=== PATIENT | female | born 1950 | race African-American/Black ===

== ENCOUNTER 2023-08-22 15:32 | Emergency (ER) | payer MEDICARE, MEDICAID ==
[~2023-08-22] VITALS: Ht 162.6 cm; Wt 74.8 kg
[~2023-08-22 15:32] MED LIST: AMLO5TAB88 PO; APIX5TAB PO; ATOR40TA70 MT; DILT120C46 PO; DILT120C88 MT; FAMO20TA8 PO; GABA-529 PO; POTA-204 MT; TOPUD PO; [UNRECOGNIZED DRUG - OTHER]
[2023-08-22 15:43] VITALS: BP 168/84; RESP 16; TEMP 98.6; O2SAT 98
[2023-08-22 15:46] VITALS: PULSE 76
[2023-08-22] MEDS: BACITRACIN ZINC OINT UDPKT TOP ONE (16:45)
[2023-08-22] MEDS: LIDOCAINE/PRILOCAINE CREAM 5 GM TUBE TOP ONE (17:22)
[2023-08-22] MEDS: LIDOCAINE HCL/PF 1% 10 MG/ML 5ML VIAL INFIL ONE (17:35)
[2023-08-22] MEDS: LIDOCAINE/EPINEPHR/TETRACAINE 3ML TP ONE (17:35)
[2023-08-22] MEDS ORDERED: NEOM28.38 TP (18:04)
== END 2023-08-22 18:14 | disposition home or self-care (01) ==
LOC: ER 15:32
DX: T16.2XXA Foreign body in left ear, initial encounter (principal); T16.1XXA Foreign body in right ear, initial encounter; E78.00 Pure hypercholesterolemia, unspecified; Z79.899 Other long term (current) drug therapy; Z98.890 Other specified postprocedural states; W44.9XXA Unspecified foreign body entering into or through a natural orifice, initial encounter; Y93.89 Activity, other specified; Y92.89 Other specified places as the place of occurrence of the external cause; Y99.8 Other external cause status
CPT/HCPCS: 69200; 99284

== ENCOUNTER 2024-06-28 20:04 | Emergency (ER) | payer MEDICARE, MEDICAID ==
[~2024-06-28] VITALS: Ht 170.2 cm; Wt 64.7 kg
[~2024-06-28 20:04] MED LIST changes: +NEOM28.38 TP
[2024-06-28 20:29] VITALS: O2SAT 98
[2024-06-28] MEDS ORDERED: AMLODIPINE 10MG TABLET PO ONE (23:30)
[2024-06-29] MEDS: ACETAMINOPHEN 325MG TABLET PO STA (00:12)
[2024-06-29] MEDS: IBUPROFEN 400MG TABLET PO ONE (00:12)
[2024-06-29] MEDS: AMLODIPINE 5MG TABLET PO NR (00:13)
[2024-06-29 00:14] LABS: BASOPHILS % 0.7 % (0.0-2.0); DIFFERENTIAL COMMENT 0; HEMATOCRIT. 43.6 % (36.0-48.0); HEMOGLOBIN. 13.7 g/dL (12.0-16.0); MEAN CORPUSCULAR HEMOGLOBIN 24.7 pg (28.0-32.0); MEAN CORPUSCULAR HGB CONC 31.5 g/dL (31.0-37.0); MEAN CORPUSCULAR VOLUME 78.5 fL (81.0-99.0); MEAN PLATELET VOLUME 9.4 fl (7.4-10.4); MONOCYTES % 5.7 % (2.0-8.0); NEUTROPHILS % 59.6 % (40.0-76.0); PLATELET 179 x1000/uL (130-400); RED BLOOD CELL COUNT 5.56 mill/uL (4.2-5.4); RED CELL DISTRIBUTION WIDTH 14.4 % (11.6-14.6); WHITE BLOOD COUNT 7.6 x1000/uL (4.5-11.0)
[2024-06-29 00:18] LABS: CHLORIDE 106 mEq/L (98-107); POTASSIUM 4.7 mEq/L (3.5-5.1); SODIUM 141 mEq/L (136-145)
[2024-06-29 00:19] LABS: CARBON DIOXIDE 28 mEq/L (21-32)
[2024-06-29 00:24] LABS: CREATININE 0.8 mg/dL (0.6-1.0); GLUCOSE 103 mg/dL (70-105); UREA NITROGEN BLOOD 9 mg/dL (9-23)
[2024-06-29 00:25] LABS: TROPONIN I HIGH SENSITIVITY 7 ng/L (3.0-34)
[2024-06-29 01:34] LABS: CLARITY URINE CLEAR (CLEAR); COLOR URINE YELLOW (YELLOW); GLUCOSE URINE NEGATIVE (NEGATIVE); KETONES URINE NEGATIVE (NEGATIVE); LEUKOCYTE ESTERASE URINE NEGATIVE (NEGATIVE); NITRITE URINE POSITIVE (NEGATIVE); OCCULT BLOOD URINE 1+ (NEGATIVE); PH URINE 7.5 (4.5-8.0); PROTEIN URINE 1+ (NEGATIVE); SPECIFIC GRAVITY URINE 1.007 (1.005-1.030); UROBILINOGEN URINE 0.2 E.U./dL (0.2-1.0)
[2024-06-29] MEDS ORDERED: CEPH500C2 MT (01:53)
[2024-06-29] MEDS: CEFTRIAXONE 1GM/50ML 50 ML IV ONE (02:09)
[2024-06-29] MEDS: CLONIDINE 0.2MG TABLET PO ONE (02:12)
[2024-06-29 02:15] VITALS: BP 148/72; PULSE 69; RESP 21; TEMP 36.8; O2SAT 100
[2024-06-29 03:10] LABS: SQUAMOUS EPITHELIAL CELL URINE FEW /lpf (RARE/1+)
[2024-06-29 03:11] LABS: BACTERIA URINE 2+
== END 2024-06-29 02:52 | disposition home or self-care (01) ==
LOC: ER 20:04
DX: R51.9 Headache, unspecified (principal); I10 Essential (primary) hypertension; N39.0 Urinary tract infection, site not specified; Z79.01 Long term (current) use of anticoagulants; Z79.899 Other long term (current) drug therapy; Z86.73 Personal history of transient ischemic attack (TIA), and cerebral infarction without residual deficits; Z87.440 Personal history of urinary (tract) infections
CPT/HCPCS: 99285; 71045; 80048; 85025; 84484; 87077; 36415; 93005; 96374; 70450; 81003; 87086; 87186; J0696; A4606

== ENCOUNTER 2025-01-15 19:07 | Emergency (ER) | payer MEDICARE, MEDICAID ==
[~2025-01-15] VITALS: Ht 170.2 cm; Wt 64.0 kg
[~2025-01-15 19:07] MED LIST changes: +CEPH500C2 MT
[2025-01-15 19:18] VITALS: TEMP 36.7; O2SAT 100
[2025-01-15 20:26] LABS: CREATININE 0.9 mg/dL (0.6-1.0)
[2025-01-15 20:27] LABS: ETHANOL BLOOD < 10 mg/dL (<10); TROPONIN I HIGH SENSITIVITY 11 ng/L (3.0-34); UREA NITROGEN BLOOD 17 mg/dL (9-23)
[2025-01-15 20:28] LABS: ASPARTATE AMINOTRANSFERASE 16 IU/L (<34)
[2025-01-15 20:29] LABS: BILIRUBIN DIRECT 0.2 mg/dL (<=3.0); BILIRUBIN TOTAL 0.6 mg/dL (0.1-1.0); PROTEIN TOTAL 7.1 g/dL (6.0-8.3)
[2025-01-15] MEDS: SODIUM CHLORIDE 0.9% 1,000 ML IV ONE (20:48)
[2025-01-15] MEDS: CEFTRIAXONE SODIUM 2G VIAL IM ONE (21:33)
[2025-01-15 21:40] LABS: BASOPHILS % 0.7 % (0.0-2.0); EOSINOPHILS % 0.5 % (0.0-5.0); HEMATOCRIT. 33.0 % (36.0-48.0); HEMOGLOBIN. 10.4 g/dL (12.0-16.0); LYMPHOCYTES % 18.8 % (20.0-50.0); MEAN PLATELET VOLUME 9.6 fl (7.4-10.4); MONOCYTES % 6.3 % (2.0-8.0); NEUTROPHILS % 73.7 % (40.0-76.0); PLATELET 157 x1000/uL (130-400); RED BLOOD CELL COUNT 4.26 mill/uL (4.2-5.4); RED CELL DISTRIBUTION WIDTH 13.8 % (11.6-14.6)
[2025-01-15] MEDS ORDERED: SODIUM CHLORIDE 0.9% 1,000 ML IV ONE (22:00)
[2025-01-15 22:58] LABS: CLARITY URINE CLEAR (CLEAR); COLOR URINE YELLOW (YELLOW); GLUCOSE URINE NEGATIVE (NEGATIVE); KETONES URINE TRACE (NEGATIVE); LEUKOCYTE ESTERASE URINE 2+ (NEGATIVE); NITRITE URINE POSITIVE (NEGATIVE); OCCULT BLOOD URINE 1+ (NEGATIVE); PH URINE 6.5 (4.5-8.0); PROTEIN URINE NEGATIVE (NEGATIVE); SPECIFIC GRAVITY URINE 1.011 (1.005-1.030); UROBILINOGEN URINE 0.2 E.U./dL (0.2-1.0)
[2025-01-15 23:08] LABS: BACTERIA URINE 2+; SQUAMOUS EPITHELIAL CELL URINE 1+ /lpf (RARE/1+)
[2025-01-15 23:13] LABS: *AMPHETAMINES SCREEN URINE NEGATIVE (NEGATIVE); *BARBITURATES SCREEN URINE NEGATIVE (NEGATIVE); *BENZODIAZEPINES SCREEN URINE NEGATIVE (NEGATIVE); *COCAINE SCREEN URINE NEGATIVE (NEGATIVE); CANNABINOID URINE SCREEN NEGATIVE (NEGATIVE); ECSTASY MDMA SCREEN URINE NEGATIVE (NEGATIVE); METHADONE URINE SCREEN NEGATIVE (NEGATIVE); OPIATES URINE SCREEN NEGATIVE (NEGATIVE); PHENCYCLIDINE URINE SCREEN NEGATIVE (NEGATIVE)
[2025-01-15] MEDS ORDERED: CEPH500T MT (23:18)
[2025-01-15 23:44] VITALS: BP 124/76; PULSE 82; RESP 18; O2SAT 100
== END 2025-01-15 23:47 | disposition home or self-care (01) ==
LOC: ER 19:07 → CMPBEDREQ 01-17 07:16
DX: N39.0 Urinary tract infection, site not specified (principal); I10 Essential (primary) hypertension; I67.82 Cerebral ischemia; Z79.01 Long term (current) use of anticoagulants; Z79.899 Other long term (current) drug therapy; Z86.73 Personal history of transient ischemic attack (TIA), and cerebral infarction without residual deficits
CPT/HCPCS: 80076; 80305; 80048; 81003; 80320; 82140; 83880; 83605; 83690; 83735; 85025; 87040; 84484; 36415; 71045; 70450; 96360; 96372; 99285; J0696; J7030; 96361; G0480

== ENCOUNTER 2025-02-15 15:48 | Inpatient (IN) | payer MEDICARE, MEDICAID ==
[~2025-02-15] VITALS: Ht 167.6 cm; Wt 62.6 kg
[~2025-02-15 15:48] MED LIST changes: +CEPH500T MT
[2025-02-15 15:54] VITALS: O2SAT 98
[2025-02-15] MEDS: PANTOPRAZOLE SODIUM 40 MG/VIAL IV ONE (16:30)
[2025-02-15 16:41] LABS: BASOPHILS % 0.7 % (0.0-2.0); EOSINOPHILS % 0.2 % (0.0-5.0); HEMATOCRIT. 35.7 % (36.0-48.0); HEMOGLOBIN. 11.1 g/dL (12.0-16.0); LYMPHOCYTES % 12.5 % (20.0-50.0); MEAN PLATELET VOLUME 9.6 fl (7.4-10.4); MONOCYTES % 5.6 % (2.0-8.0); NEUTROPHILS % 81.0 % (40.0-76.0); PLATELET 206 x1000/uL (130-400); RED BLOOD CELL COUNT 4.55 mill/uL (4.2-5.4); RED CELL DISTRIBUTION WIDTH 13.6 % (11.6-14.6)
[2025-02-15 16:54] LABS: CREATININE 0.9 mg/dL (0.6-1.0); UREA NITROGEN BLOOD 13 mg/dL (9-23)
[2025-02-15 16:55] LABS: TROPONIN I HIGH SENSITIVITY 13 ng/L (3.0-34)
[2025-02-15 16:56] LABS: ASPARTATE AMINOTRANSFERASE 14 IU/L (<34); BILIRUBIN DIRECT 0.1 mg/dL (<=3.0); BILIRUBIN TOTAL 0.5 mg/dL (0.1-1.0); PROTEIN TOTAL 6.9 g/dL (6.0-8.3)
[2025-02-15 17:00] LABS: INR 1.0
[2025-02-15 20:11] LABS: CLARITY URINE TURBID (CLEAR); COLOR URINE ORANGE (YELLOW); GLUCOSE URINE NEGATIVE (NEGATIVE); KETONES URINE TRACE (NEGATIVE); LEUKOCYTE ESTERASE URINE 3+ (NEGATIVE); NITRITE URINE POSITIVE (NEGATIVE); OCCULT BLOOD URINE 3+ (NEGATIVE); PH URINE 8.0 (4.5-8.0); PROTEIN URINE 3+ (NEGATIVE); SPECIFIC GRAVITY URINE 1.034 (1.005-1.030); UROBILINOGEN URINE 1.0 E.U./dL (0.2-1.0)
[2025-02-15 20:32] LABS: BACTERIA URINE 1+; SQUAMOUS EPITHELIAL CELL URINE 2+ /lpf (RARE/1+)
[2025-02-15 20:52] VITALS: BP 145/71; PULSE 80; RESP 20; TEMP 36.6404
[2025-02-15] MEDS: POTASSIUM CHLORIDE 20MEQ TABLET SR PO SCH (21:23)
[2025-02-15] MEDS ORDERED: MEMA5TAB16 PO (21:44)
[2025-02-15] MEDS ORDERED: ONDANSETRON HCL 4MG/2ML INJ IV PRN (22:45)
[2025-02-15] MEDS ORDERED: MORPHINE SULFATE 2 MG/ML INJ (NOT FOR IM USE) IV PRN (22:45)
[2025-02-15] MEDS ORDERED: DOCUSATE SODIUM 100MG CAPSULE PO PRN (22:45)
[2025-02-15] MEDS ORDERED: NA PHOS,M-B/NA PHOS,DI-BA ENEMA 118ML PR PRN (23:00)
[2025-02-15] MEDS: SODIUM CHLORIDE 0.9% 1,000 ML IV SCH (23:21)
[2025-02-15] MEDS: CEFTRIAXONE 1GM/50ML 50 ML IV SCH (23:21)
[2025-02-15] MEDS: LACTULOSE 20G/30ML UDC PO SCH (23:22)
[2025-02-16 00:26] VITALS: BP 147/81; PULSE 98; RESP 18; TEMP 36.4; O2SAT 97
[2025-02-16] MEDS: ACETAMINOPHEN 325MG TABLET PO PRN (03:02)
[2025-02-16 04:00] VITALS: BP 122/53; PULSE 96; RESP 18; TEMP 37; O2SAT 98
[2025-02-16 08:00] VITALS: BP 123/65; PULSE 65; RESP 20; TEMP 36.6; O2SAT 98
[2025-02-16] MEDS: FOLIC ACID 1MG TABLET PO SCH (09:23)
[2025-02-16 09:36] LABS: CREATININE 0.7 mg/dL (0.6-1.0); UREA NITROGEN BLOOD 8 mg/dL (9-23)
[2025-02-16 09:38] LABS: PHOSPHORUS 3.2 mg/dL (2.5-4.9)
[2025-02-16 12:00] VITALS: BP 120/67; PULSE 71; RESP 18; TEMP 36.6; O2SAT 99
[2025-02-16 12:34] LABS: HEPATITIS C AB NON REACTIVE (Neg) (Negative)
[2025-02-16 16:00] VITALS: BP 118/79; PULSE 80; RESP 20; TEMP 36.7; O2SAT 96
[2025-02-16 19:20] LABS: BASOPHILS % 0.8 % (0.0-2.0); EOSINOPHILS % 0.6 % (0.0-5.0); HEMATOCRIT. 38.1 % (36.0-48.0); HEMOGLOBIN. 11.9 g/dL (12.0-16.0); LYMPHOCYTES % 22.7 % (20.0-50.0); MEAN PLATELET VOLUME 10.5 fl (7.4-10.4); MONOCYTES % 5.7 % (2.0-8.0); NEUTROPHILS % 70.2 % (40.0-76.0); PLATELET 198 x1000/uL (130-400); RED BLOOD CELL COUNT 4.86 mill/uL (4.2-5.4); RED CELL DISTRIBUTION WIDTH 14.0 % (11.6-14.6)
[2025-02-16 20:24] VITALS: BP 151/79; PULSE 96; RESP 18; TEMP 36.4; O2SAT 96
[2025-02-16] MEDS: CEFTRIAXONE 1GM/50ML 50 ML IV SCH (20:53)
[2025-02-17 00:12] VITALS: BP 144/80; PULSE 78; RESP 19; TEMP 36.4; O2SAT 97
[2025-02-17 04:38] VITALS: BP 139/71; PULSE 78; RESP 18; TEMP 36.3; O2SAT 97
[2025-02-17 08:00] VITALS: BP 128/79; PULSE 98; RESP 20; TEMP 37; O2SAT 98
[2025-02-17] MEDS: HYDROCODONE/ACETAMINOPHEN 5/325MG TABLET PO PRN (10:44)
[2025-02-17 12:00] VITALS: BP 139/80; PULSE 97; RESP 18; TEMP 37; O2SAT 98
[2025-02-17 16:00] VITALS: BP 129/79; PULSE 81; RESP 22; TEMP 36.3; O2SAT 95
[2025-02-17 20:00] VITALS: BP 159/92; PULSE 95; RESP 18; TEMP 37; O2SAT 98
[2025-02-18 04:00] VITALS: BP 171/78; PULSE 69; RESP 16; TEMP 36.7; O2SAT 95
[2025-02-18 08:00] VITALS: BP 153/79; PULSE 70; RESP 20; TEMP 37.1; O2SAT 96
[2025-02-18 09:02] VITALS: BP 153/79; PULSE 70; RESP 20; TEMP 37.1; O2SAT 20
[2025-02-18 12:13] VITALS: BP 141/77; PULSE 72; RESP 18; TEMP 37.2; O2SAT 99
[2025-02-18 16:55] VITALS: BP 126/67; PULSE 71; RESP 20; TEMP 36.5; O2SAT 96
[2025-02-18 20:00] VITALS: BP 135/77; PULSE 71; RESP 20; TEMP 36.7; O2SAT 97
[2025-02-19] VITALS: BP 134/72; PULSE 71; RESP 20; TEMP 37.4; O2SAT 99
[2025-02-19 04:00] VITALS: BP 132/79; PULSE 77; RESP 20; TEMP 37; O2SAT 98
[2025-02-19 07:17] LABS: BASOPHILS % 0.4 % (0.0-2.0); EOSINOPHILS % 1.4 % (0.0-5.0); HEMATOCRIT. 38.3 % (36.0-48.0); HEMOGLOBIN. 12.2 g/dL (12.0-16.0); LYMPHOCYTES % 19.1 % (20.0-50.0); MEAN PLATELET VOLUME 10.0 fl (7.4-10.4); MONOCYTES % 7.4 % (2.0-8.0); NEUTROPHILS % 71.7 % (40.0-76.0); PLATELET 224 x1000/uL (130-400); RED BLOOD CELL COUNT 4.96 mill/uL (4.2-5.4); RED CELL DISTRIBUTION WIDTH 13.8 % (11.6-14.6)
[2025-02-19 07:23] LABS: CREATININE 0.8 mg/dL (0.6-1.0)
[2025-02-19 07:24] LABS: UREA NITROGEN BLOOD 10 mg/dL (9-23)
[2025-02-19 07:26] LABS: PHOSPHORUS 3.5 mg/dL (2.5-4.9)
[2025-02-19 08:36] VITALS: BP 127/74; PULSE 78; RESP 18; TEMP 36.6; O2SAT 96
[2025-02-19 12:17] VITALS: BP 129/74; PULSE 83; RESP 18; TEMP 36.6; O2SAT 98
[2025-02-19 16:32] VITALS: BP 148/81; PULSE 78; RESP 18; TEMP 97.9
[2025-02-19 16:34] VITALS: BP 148/81; PULSE 74; RESP 18; TEMP 36.6; O2SAT 96
== END 2025-02-19 17:50 | DRG 871 ==
LOC: ER 15:48 → 7WST 17:57 → ENRESERV 19:08
PROVIDERS: ADMIT Internal Medicine Nephrology; ATTEND Internal Medicine Nephrology
DX: A41.9 Sepsis, unspecified organism (principal); G82.50 Quadriplegia, unspecified; G93.41 Metabolic encephalopathy; N39.0 Urinary tract infection, site not specified; I69.351 Hemiplegia and hemiparesis following cerebral infarction affecting right dominant side; I10 Essential (primary) hypertension; D64.9 Anemia, unspecified; F03.90 Unspecified dementia, unspecified severity, without behavioral disturbance, psychotic disturbance, mood disturbance, and anxiety; M48.061 Spinal stenosis, lumbar region without neurogenic claudication; M75.01 Adhesive capsulitis of right shoulder; E78.00 Pure hypercholesterolemia, unspecified; K64.9 Unspecified hemorrhoids; R53.81 Other malaise; M48.02 Spinal stenosis, cervical region; Z79.01 Long term (current) use of anticoagulants; Z82.49 Family history of ischemic heart disease and other diseases of the circulatory system
CPT/HCPCS: 36415; 74174; 80048; 80076; 81003; 83605; 83735; 84100; 84484; 85025; 86705; 86850; 86900; 87340; 93005; 93970; 96374; 97162; 97167; 99285; A4606; J0696; J2470; J7030

== ENCOUNTER 2025-02-19 17:55 | Inpatient (IN) | payer MEDICARE, MEDICAID ==
[~2025-02-19] VITALS: Ht 167.6 cm; Wt 62.6 kg
[~2025-02-19 17:55] MED LIST changes: -CEPH500C2 MT; -CEPH500T MT; -FAMO20TA8 PO; +MEMA5TAB16 PO; -NEOM28.38 TP; -TOPUD PO; -[UNRECOGNIZED DRUG - OTHER]
[2025-02-19 18:53] VITALS: BP 131/68; PULSE 82; RESP 17; TEMP 37.1; O2SAT 100
[2025-02-19 20:00] VITALS: BP 125/60; PULSE 74; RESP 20; TEMP 36.5848; TEMP 36.6; O2SAT 99
[2025-02-20 06:49] LABS: BASOPHILS % 0.7 % (0.0-2.0); EOSINOPHILS % 2.1 % (0.0-5.0); HEMATOCRIT. 35.1 % (36.0-48.0); HEMOGLOBIN. 11.3 g/dL (12.0-16.0); LYMPHOCYTES % 23.7 % (20.0-50.0); MEAN PLATELET VOLUME 10.0 fl (7.4-10.4); MONOCYTES % 7.9 % (2.0-8.0); NEUTROPHILS % 65.6 % (40.0-76.0); PLATELET 194 x1000/uL (130-400); RED BLOOD CELL COUNT 4.54 mill/uL (4.2-5.4); RED CELL DISTRIBUTION WIDTH 13.9 % (11.6-14.6)
[2025-02-20 06:59] LABS: CREATININE 0.8 mg/dL (0.6-1.0); UREA NITROGEN BLOOD 14 mg/dL (9-23)
[2025-02-20 07:01] LABS: ASPARTATE AMINOTRANSFERASE 11 IU/L (<34); BILIRUBIN TOTAL 0.6 mg/dL (0.1-1.0); PROTEIN TOTAL 6.3 g/dL (6.0-8.3)
[2025-02-20 08:00] VITALS: BP 132/60; PULSE 70; RESP 20; TEMP 36.4; O2SAT 98
[2025-02-20] MEDS ORDERED: PANTOPRAZOLE 40MG DR TABLET PO ONE (12:30)
[2025-02-20] MEDS: ACETAMINOPHEN 325MG TABLET PO PRN (13:06)
[2025-02-20] MEDS: ENOXAPARIN 40MG/0.4ML SYR SUBCUT SCH (13:10)
[2025-02-20] MEDS ORDERED: NALOXONE HCL 0.4MG/ML VIAL IV PRN (16:30)
[2025-02-20 20:00] VITALS: BP 136/66; PULSE 74; RESP 20; TEMP 36.3; O2SAT 98
[2025-02-20] MEDS: LACTULOSE 20G/30ML UDC PO SCH (20:21)
[2025-02-20] MEDS: HEMORRHOIDAL SUPP PR SCH (20:21)
[2025-02-21 07:04] LABS: BASOPHILS % 0.8 % (0.0-2.0); EOSINOPHILS % 1.6 % (0.0-5.0); HEMATOCRIT. 35.7 % (36.0-48.0); HEMOGLOBIN. 11.2 g/dL (12.0-16.0); LYMPHOCYTES % 20.4 % (20.0-50.0); MEAN PLATELET VOLUME 9.9 fl (7.4-10.4); MONOCYTES % 8.5 % (2.0-8.0); NEUTROPHILS % 68.7 % (40.0-76.0); PLATELET 202 x1000/uL (130-400); RED BLOOD CELL COUNT 4.57 mill/uL (4.2-5.4); RED CELL DISTRIBUTION WIDTH 13.6 % (11.6-14.6)
[2025-02-21 07:18] LABS: CREATININE 0.7 mg/dL (0.6-1.0)
[2025-02-21 07:19] LABS: TRIGLYCERIDE 114 mg/dL (0-150); UREA NITROGEN BLOOD 12 mg/dL (9-23)
[2025-02-21 07:20] LABS: ASPARTATE AMINOTRANSFERASE 10 IU/L (<34); LDL CHOLESTEROL 108 mg/dL (5-100)
[2025-02-21 07:21] LABS: BILIRUBIN TOTAL 0.6 mg/dL (0.1-1.0); PROTEIN TOTAL 6.5 g/dL (6.0-8.3)
[2025-02-21 07:22] LABS: FOLIC ACID (FOLATE) SERUM 17.47 ng/mL (>5.38)
[2025-02-21 07:23] LABS: VITAMIN B12 SERUM 357 pg/mL (211-911)
[2025-02-21 08:00] VITALS: BP 137/70; PULSE 71; RESP 16; TEMP 36.5; O2SAT 97
[2025-02-21] MEDS: PANTOPRAZOLE 40MG DR TABLET PO SCH ×2 (09:04→10:00)
[2025-02-21] MEDS: LACTULOSE 20G/30ML UDC PO SCH (10:00)
[2025-02-21] MEDS: BISACODYL 10MG SUPP PR NR ×2 (11:00→17:44)
[2025-02-21] MEDS: FERROUS SULFATE 325MG TABLET PO SCH (11:45)
[2025-02-21] MEDS: HYDROCORTISONE ACETATE 25MG SUPP PR SCH (11:45)
[2025-02-21] MEDS: CYANOCOBALAMIN 100MCG TABLET PO SCH (11:45)
[2025-02-21] MEDS: ASCORBIC ACID 250 MG TABLET PO SCH (11:45)
[2025-02-21] MEDS: HYDROCODONE/ACETAMINOPHEN 5/325MG TABLET PO PRN (13:10)
[2025-02-21 20:00] VITALS: BP 132/71; PULSE 71; RESP 18; TEMP 36.1; O2SAT 98
[2025-02-21] MEDS: SENNOSIDES/DOCUSATE SOD 8.6/50MG TABLET PO SCH (20:46)
[2025-02-22 08:00] VITALS: BP 136/72; PULSE 72; RESP 18; TEMP 36.4; O2SAT 96
[2025-02-22] MEDS: PANTOPRAZOLE 40MG DR TABLET PO SCH (08:48)
[2025-02-22] MEDS ORDERED: VITAMINS A AND D OINT TUBE TOP PRN (13:45)
[2025-02-22] MEDS: ERGOCALCIFEROL 50000UNITS CAPSULE PO SCH (13:48)
[2025-02-22] MEDS: HYDROCODONE/ACETAMINOPHEN 5/325MG TABLET PO PRN (15:24)
[2025-02-22 17:08] LABS: CLARITY URINE CLOUDY (CLEAR); COLOR URINE DARK YELLOW (YELLOW); GLUCOSE URINE NEGATIVE (NEGATIVE); KETONES URINE 1+ (NEGATIVE); LEUKOCYTE ESTERASE URINE 2+ (NEGATIVE); NITRITE URINE NEGATIVE (NEGATIVE); OCCULT BLOOD URINE 3+ (NEGATIVE); PH URINE 5.5 (4.5-8.0); PROTEIN URINE TRACE (NEGATIVE); SPECIFIC GRAVITY URINE 1.029 (1.005-1.030); UROBILINOGEN URINE 1.0 E.U./dL (0.2-1.0)
[2025-02-22 17:23] LABS: BACTERIA URINE 1+; SQUAMOUS EPITHELIAL CELL URINE 2+ /lpf (RARE/1+)
[2025-02-22] MEDS ORDERED: ERGOCALCIFEROL 50000UNITS CAPSULE PO SCH (18:15)
[2025-02-22 20:00] VITALS: BP 153/66; PULSE 70; RESP 18; TEMP 36.4; O2SAT 99
[2025-02-23 05:17] LABS: BASOPHILS % 0.7 % (0.0-2.0); EOSINOPHILS % 1.3 % (0.0-5.0); HEMATOCRIT. 34.3 % (36.0-48.0); HEMOGLOBIN. 10.9 g/dL (12.0-16.0); LYMPHOCYTES % 17.4 % (20.0-50.0); MEAN PLATELET VOLUME 9.9 fl (7.4-10.4); MONOCYTES % 8.6 % (2.0-8.0); NEUTROPHILS % 72.0 % (40.0-76.0); PLATELET 198 x1000/uL (130-400); RED BLOOD CELL COUNT 4.39 mill/uL (4.2-5.4); RED CELL DISTRIBUTION WIDTH 13.7 % (11.6-14.6)
[2025-02-23 05:35] LABS: CREATININE 0.7 mg/dL (0.6-1.0); UREA NITROGEN BLOOD 12 mg/dL (9-23)
[2025-02-23 05:37] LABS: PHOSPHORUS 3.5 mg/dL (2.5-4.9)
[2025-02-23 08:00] VITALS: BP 114/61; PULSE 81; RESP 16; TEMP 36.7; O2SAT 98
[2025-02-23] MEDS: LIDOCAINE HCL 4% CREAM 76GM TUBE TP PRN (10:55)
[2025-02-23] MEDS: METHOCARBAMOL 500MG TABLET PO PRN (18:48)
[2025-02-23 20:00] VITALS: BP 125/64; PULSE 74; RESP 18; TEMP 36.6; O2SAT 96
[2025-02-24 08:00] VITALS: BP 151/44; PULSE 61; RESP 17; TEMP 36.6; O2SAT 97
[2025-02-24] MEDS: NYSTATIN 100,000 UNITS/ML 5ML UDC SSW SCH (12:36)
[2025-02-24 20:00] VITALS: BP 154/74; PULSE 78; RESP 18; TEMP 36.5; O2SAT 99
[2025-02-25 08:00] VITALS: BP 143/77; PULSE 70; RESP 18; TEMP 36.4; O2SAT 97
[2025-02-25] MEDS: NA PHOS,M-B/NA PHOS,DI-BA ENEMA 118ML PR SCH (17:47)
[2025-02-25 20:00] VITALS: BP 99/62; PULSE 95; RESP 18; TEMP 36.6; O2SAT 97
[2025-02-25] MEDS: LACTULOSE 20G/30ML UDC PO SCH (21:37)
[2025-02-26 08:00] VITALS: BP 106/64; PULSE 77; RESP 18; TEMP 36.4; O2SAT 98
[2025-02-26 11:12] LABS: BASOPHILS % 0.9 % (0.0-2.0); EOSINOPHILS % 0.9 % (0.0-5.0); HEMATOCRIT. 37.9 % (36.0-48.0); HEMOGLOBIN. 12.2 g/dL (12.0-16.0); LYMPHOCYTES % 27.8 % (20.0-50.0); MEAN PLATELET VOLUME 10.4 fl (7.4-10.4); MONOCYTES % 8.8 % (2.0-8.0); NEUTROPHILS % 61.6 % (40.0-76.0); PLATELET 242 x1000/uL (130-400); RED BLOOD CELL COUNT 4.87 mill/uL (4.2-5.4); RED CELL DISTRIBUTION WIDTH 13.7 % (11.6-14.6)
[2025-02-26] MEDS: NA PHOS,M-B/NA PHOS,DI-BA ENEMA 118ML PR SCH ×2 (15:00→17:00)
[2025-02-26] MEDS ORDERED: HYDROCODONE/ACETAMINOPHEN 5/325MG TABLET PO PRN (19:30)
[2025-02-26] MEDS ORDERED: MORPHINE SULFATE 4 MG/ML INJ (FOR IV/IM USE) IV PRN (19:45)
[2025-02-26] MEDS ORDERED: PHENYLEPH/PRAMOXIN/GLYCR/PET RECTAL CREAM 26GM PR PRN (19:45)
[2025-02-26] MEDS ORDERED: KETOROLAC 30MG/ML VIAL IM ONE (20:00)
[2025-02-26] MEDS: KETOROLAC 15MG/ML VIAL IM SCH (20:24)
[2025-02-26 22:05] VITALS: BP 132/65; PULSE 71; RESP 18; TEMP 97.5
== END 2025-02-26 23:15 | disposition short-term general hospital (02) | DRG 551 ==
PROVIDERS: ADMIT Physical Medicine & Rehabilitation Spinal Cord Injury Medicine; ATTEND Internal Medicine Nephrology
DX: M48.02 Spinal stenosis, cervical region (principal); A41.9 Sepsis, unspecified organism; G82.50 Quadriplegia, unspecified; G93.41 Metabolic encephalopathy; K92.1 Melena; N39.0 Urinary tract infection, site not specified; I69.351 Hemiplegia and hemiparesis following cerebral infarction affecting right dominant side; F03.93 Unspecified dementia, unspecified severity, with mood disturbance; K56.49 Other impaction of intestine; M48.061 Spinal stenosis, lumbar region without neurogenic claudication; R53.81 Other malaise; D50.9 Iron deficiency anemia, unspecified; M75.01 Adhesive capsulitis of right shoulder; I10 Essential (primary) hypertension; E78.00 Pure hypercholesterolemia, unspecified; K64.9 Unspecified hemorrhoids; E55.9 Vitamin D deficiency, unspecified; G89.29 Other chronic pain; K56.41 Fecal impaction; R41.3 Other amnesia; M50.10 Cervical disc disorder with radiculopathy, unspecified cervical region; Z82.49 Family history of ischemic heart disease and other diseases of the circulatory system; Z87.440 Personal history of urinary (tract) infections; Z91.81 History of falling
CPT/HCPCS: 36415; 74018; 80048; 80053; 80061; 81003; 82140; 82306; 82550; 82607; 82728; 82746; 82962; 83036; 83540; 83550; 83735; 84100; 84134; 84145; 84443; 85014; 85018; 85025; 92523; 92610; 97110; 97116; 97162; 97166; 97530; 97535; J1650; J1885

== ENCOUNTER 2025-02-26 23:11 | Inpatient (IN) | payer MEDICARE, MEDICAID ==
[~2025-02-26] VITALS: Ht 167.6 cm; Wt 79.2 kg
[~2025-02-26 23:11] MED LIST changes: -AMLO5TAB88 PO; -APIX5TAB PO; -POTA-204 MT
[2025-02-26 23:30] VITALS: BP 130/69; PULSE 80; RESP 18; TEMP 36.5292
[2025-02-27] MEDS ORDERED: KETOROLAC 15MG/ML VIAL IV PRN (02:30)
[2025-02-27] MEDS ORDERED: METHOCARBAMOL 750MG TABLET PO PRN (02:45)
[2025-02-27] MEDS ORDERED: HYDROCODONE/ACETAMINOPHEN 5/325MG TABLET PO PRN (02:45)
[2025-02-27] MEDS: MORPHINE SULFATE 4 MG/ML INJ (FOR IV/IM USE) IV PRN (02:58)
[2025-02-27] MEDS ORDERED: VITAMINS A AND D OINT TUBE TOP PRN (03:30)
[2025-02-27] MEDS ORDERED: LIDOCAINE HCL 4% CREAM 76GM TUBE TP PRN (03:30)
[2025-02-27] MEDS ORDERED: VITAMINS A AND D OINT 5GM UDPKT TOP PRN (04:30)
[2025-02-27] MEDS: NYSTATIN 100,000 UNITS/ML 5ML UDC SSW SCH (06:40)
[2025-02-27] MEDS: LACTULOSE 20G/30ML UDC PO SCH (06:40)
[2025-02-27] MEDS: HYDROCORTISONE ACETATE 25MG SUPP PR SCH (08:50)
[2025-02-27] MEDS: CYANOCOBALAMIN 100MCG TABLET PO SCH (08:50)
[2025-02-27] MEDS: ASCORBIC ACID 250 MG TABLET PO SCH (08:50)
[2025-02-27] MEDS: ACETAMINOPHEN 325MG TABLET PO PRN (08:50)
[2025-02-27] MEDS: FERROUS SULFATE 325MG TABLET PO SCH (08:51)
[2025-02-27] MEDS: PANTOPRAZOLE 40MG DR TABLET PO SCH (08:51)
[2025-02-27 09:12] VITALS: BP 111/80; PULSE 59; RESP 18; TEMP 36.5; O2SAT 97
[2025-02-27] MEDS: HYDROCODONE/ACETAMINOPHEN 5/325MG TABLET PO PRN (10:27)
[2025-02-27] MEDS ORDERED: NALOXONE HCL 0.4MG/ML VIAL IV PRN (11:30)
[2025-02-27 12:00] VITALS: BP 122/75; PULSE 104; RESP 20; TEMP 37.2; O2SAT 96
[2025-02-27] MEDS ORDERED: POLYETHYLENE GLYCOL-ELECTROLYTE 4000ML PO NR (12:30)
[2025-02-27] MEDS: ACETAMINOPHEN 500MG TABLET PO SCH (12:45)
[2025-02-27] MEDS: LIDOCAINE HCL 4% CREAM 76GM TUBE TP SCH (13:02)
[2025-02-27] MEDS: PHENYLEPH/PRAMOXIN/GLYCR/PET RECTAL CREAM 26GM PR PRN (13:03)
[2025-02-27] MEDS: SODIUM CHLORIDE 0.45% 1,000 ML IV SCH (13:30)
[2025-02-27] MEDS: NEOMY SULF/BACITRAC ZN/POLY OINT 28GM TOP SCH (14:00)
[2025-02-27 16:00] VITALS: BP_SYST 125; BP_DIAS 73; BP_DIAS 76; PULSE 84; RESP 18; TEMP 37.1; O2SAT 97
[2025-02-27 20:00] VITALS: BP 117/64; PULSE 79; RESP 18; TEMP 35.9; O2SAT 97
[2025-02-27] MEDS: SENNOSIDES/DOCUSATE SOD 8.6/50MG TABLET PO SCH (21:49)
[2025-02-27 22:08] LABS: PLATELET 268 x1000/uL (130-400); RED BLOOD CELL COUNT 4.95 mill/uL (4.2-5.4); RED CELL DISTRIBUTION WIDTH 13.9 % (11.6-14.6)
[2025-02-27 22:25] LABS: CREATININE 0.8 mg/dL (0.6-1.0); UREA NITROGEN BLOOD 14 mg/dL (9-23)
[2025-02-27 22:26] LABS: ASPARTATE AMINOTRANSFERASE 14 IU/L (<34)
[2025-02-27 22:27] LABS: BILIRUBIN TOTAL 0.4 mg/dL (0.1-1.0); PHOSPHORUS 3.5 mg/dL (2.5-4.9); PROTEIN TOTAL 6.6 g/dL (6.0-8.3)
[2025-02-28] VITALS: BP 145/78; PULSE 79; RESP 20; TEMP 36.1; O2SAT 96
[2025-02-28] MEDS: KETOROLAC 15MG/ML VIAL IV PRN (01:08)
[2025-02-28 04:00] VITALS: BP 125/71; PULSE 76; RESP 20; TEMP 36.1; O2SAT 96
[2025-02-28 07:13] LABS: CREATININE 0.8 mg/dL (0.6-1.0); UREA NITROGEN BLOOD 19 mg/dL (9-23)
[2025-02-28 07:14] LABS: BASOPHILS % 0.6 % (0.0-2.0); EOSINOPHILS % 0.7 % (0.0-5.0); HEMATOCRIT. 38.8 % (36.0-48.0); HEMOGLOBIN. 12.6 g/dL (12.0-16.0); LYMPHOCYTES % 14.6 % (20.0-50.0); MEAN PLATELET VOLUME 10.4 fl (7.4-10.4); MONOCYTES % 6.4 % (2.0-8.0); NEUTROPHILS % 77.7 % (40.0-76.0); PLATELET 229 x1000/uL (130-400); RED BLOOD CELL COUNT 5.08 mill/uL (4.2-5.4); RED CELL DISTRIBUTION WIDTH 13.7 % (11.6-14.6)
[2025-02-28 08:42] VITALS: BP 146/82; PULSE 94; RESP 18; TEMP 36.6; O2SAT 98
[2025-02-28] MEDS: METHOCARBAMOL 500MG TABLET PO PRN (12:11)
[2025-02-28 12:28] VITALS: BP 132/78; PULSE 87; RESP 18; TEMP 37.2; O2SAT 98
[2025-02-28 16:38] VITALS: BP 105/65; PULSE 81; RESP 18; TEMP 36.5; O2SAT 98
[2025-02-28 20:00] VITALS: BP 146/76; PULSE 77; RESP 18; TEMP 36.8; O2SAT 98
[2025-02-28] MEDS: GABAPENTIN 100MG CAPSULE PO SCH (22:35)
[2025-03-01] VITALS (7 sets, daily range): BP systolic 111–149; BP diastolic 46–87; PULSE 72–90; RESP 17–20; TEMP 36.2–36.9; O2SAT 97–100
[2025-03-01] MEDS: HYDROCODONE/ACETAMINOPHEN 10/325MG TABLET PO PRN (06:15)
[2025-03-01] MEDS: ERGOCALCIFEROL 50000UNITS CAPSULE PO SCH (10:10)
[2025-03-01] MEDS ORDERED: LIDOCAINE 2% 6ML GLYDO MM SCH (14:15)
[2025-03-01] MEDS: LIDOCAINE 2% 6ML GLYDO MM SCH (16:25)
[2025-03-02] VITALS: BP 130/66; PULSE 77; RESP 18; TEMP 36.7; O2SAT 97
[2025-03-02 04:00] VITALS: BP 150/67; PULSE 88; RESP 18; TEMP 37.1; O2SAT 97
[2025-03-02 08:00] VITALS: BP 138/78; PULSE 85; RESP 20; TEMP 37.2; O2SAT 98
[2025-03-02 08:16] LABS: BASOPHILS % 0.4 % (0.0-2.0); EOSINOPHILS % 1.7 % (0.0-5.0); HEMATOCRIT. 37.2 % (36.0-48.0); HEMOGLOBIN. 11.8 g/dL (12.0-16.0); LYMPHOCYTES % 13.0 % (20.0-50.0); MEAN PLATELET VOLUME 10.7 fl (7.4-10.4); MONOCYTES % 5.2 % (2.0-8.0); NEUTROPHILS % 79.7 % (40.0-76.0); PLATELET 245 x1000/uL (130-400); RED BLOOD CELL COUNT 4.79 mill/uL (4.2-5.4); RED CELL DISTRIBUTION WIDTH 13.8 % (11.6-14.6)
[2025-03-02 08:19] LABS: CREATININE 0.6 mg/dL (0.6-1.0); UREA NITROGEN BLOOD 7 mg/dL (9-23)
[2025-03-02] MEDS: POTASSIUM CHLORIDE 20MEQ TABLET SR PO NR (09:28)
[2025-03-02] MEDS: MORPHINE SULFATE 4 MG/ML INJ (FOR IV/IM USE) IV NR (10:00)
[2025-03-02 12:00] VITALS: BP 143/76; PULSE 78; RESP 15; TEMP 36.5; O2SAT 98
[2025-03-02 16:00] VITALS: BP 122/74; PULSE 77; RESP 20; TEMP 36.4; O2SAT 97
[2025-03-02 20:00] VITALS: BP 160/88; PULSE 74; RESP 18; TEMP 36.6; O2SAT 100
[2025-03-02] MEDS: ONDANSETRON HCL 4MG/2ML INJ IV PRN (20:44)
[2025-03-03] VITALS: BP 163/91; PULSE 74; RESP 20; TEMP 37.1; O2SAT 98
[2025-03-03] MEDS: CLONIDINE 0.1MG TABLET PO PRN (01:07)
[2025-03-03 04:00] VITALS: BP 149/80; PULSE 84; RESP 20; TEMP 36.8; O2SAT 100
[2025-03-03 08:00] VITALS: BP 139/70; PULSE 85; RESP 15; TEMP 36.2; O2SAT 96
[2025-03-03 08:26] LABS: BASOPHILS % 0.2 % (0.0-2.0); EOSINOPHILS % 0.1 % (0.0-5.0); HEMATOCRIT. 37.3 % (36.0-48.0); HEMOGLOBIN. 11.8 g/dL (12.0-16.0); LYMPHOCYTES % 9.9 % (20.0-50.0); MEAN PLATELET VOLUME 10.3 fl (7.4-10.4); MONOCYTES % 6.3 % (2.0-8.0); NEUTROPHILS % 83.5 % (40.0-76.0); PLATELET 244 x1000/uL (130-400); RED BLOOD CELL COUNT 4.78 mill/uL (4.2-5.4); RED CELL DISTRIBUTION WIDTH 14.0 % (11.6-14.6)
[2025-03-03] MEDS: AMLODIPINE 10MG TABLET PO SCH (09:00)
[2025-03-03 09:13] LABS: CREATININE 0.9 mg/dL (0.6-1.0)
[2025-03-03 09:14] LABS: UREA NITROGEN BLOOD 8 mg/dL (9-23)
[2025-03-03 09:16] LABS: PHOSPHORUS 4.5 mg/dL (2.5-4.9)
[2025-03-03] MEDS ORDERED: ONDANSETRON HCL 4MG/2ML INJ IV PRN (09:30)
[2025-03-03] MEDS: DEXT 5%/0.45% NACL 1000ML 1,000 ML IV SCH (10:30)
[2025-03-03 12:00] VITALS: BP 113/74; PULSE 60; RESP 14; TEMP 36.5; O2SAT 95
[2025-03-03 13:30] LABS: INR 1.0
[2025-03-03] MEDS ORDERED: FENTANYL CITRATE/PF 50MCG/ML 2ML VIAL ONE (14:26)
[2025-03-03 17:04] VITALS: BP 126/79; PULSE 67; RESP 16; TEMP 36.2; O2SAT 100
[2025-03-03 20:39] VITALS: BP 120/62; PULSE 72; RESP 16; TEMP 36.6; O2SAT 99
[2025-03-04] VITALS: BP 111/59; PULSE 77; RESP 16; TEMP 36.4; O2SAT 98
[2025-03-04 04:00] VITALS: BP 133/61; PULSE 62; RESP 18; TEMP 36.6; O2SAT 97
[2025-03-04 06:05] LABS: BASOPHILS % 0.6 % (0.0-2.0); EOSINOPHILS % 4.9 % (0.0-5.0); HEMATOCRIT. 32.9 % (36.0-48.0); HEMOGLOBIN. 10.4 g/dL (12.0-16.0); LYMPHOCYTES % 26.4 % (20.0-50.0); MEAN PLATELET VOLUME 10.2 fl (7.4-10.4); MONOCYTES % 8.1 % (2.0-8.0); NEUTROPHILS % 60.0 % (40.0-76.0); PLATELET 219 x1000/uL (130-400); RED BLOOD CELL COUNT 4.26 mill/uL (4.2-5.4); RED CELL DISTRIBUTION WIDTH 13.8 % (11.6-14.6)
[2025-03-04 06:18] LABS: CREATININE 0.8 mg/dL (0.6-1.0); UREA NITROGEN BLOOD 8 mg/dL (9-23)
[2025-03-04 08:27] VITALS: BP 118/56; PULSE 69; RESP 20; TEMP 37.1; O2SAT 97
[2025-03-04 12:00] VITALS: BP 141/74; PULSE 72; RESP 18; TEMP 36.6; O2SAT 97
[2025-03-04] MEDS: SORBITOL 70% SOLN 30ML PO SCH (16:00)
[2025-03-04] MEDS: METOCLOPRAMIDE HCL 10MG/2ML VIAL IV SCH (16:00)
[2025-03-04] MEDS: BISACODYL 5MG TABLET PO SCH (16:00)
[2025-03-04 16:48] VITALS: BP 107/53; PULSE 68; RESP 20; TEMP 36.6; O2SAT 98
[2025-03-04 20:00] VITALS: BP 135/63; PULSE 70; RESP 20; TEMP 36.4; O2SAT 94
[2025-03-05] VITALS: BP 127/60; PULSE 71; RESP 16; TEMP 36.3; O2SAT 95
[2025-03-05 04:00] VITALS: BP 132/74; PULSE 76; RESP 16; TEMP 36.6; O2SAT 97
[2025-03-05 08:00] VITALS: BP 158/75; PULSE 93; RESP 20; TEMP 36; O2SAT 98
[2025-03-05 12:00] VITALS: BP 144/83; PULSE 91; RESP 18; TEMP 36.4; O2SAT 97
[2025-03-05 16:00] VITALS: BP 151/85; PULSE 89; RESP 22; TEMP 35.6; O2SAT 99
[2025-03-05] MEDS: POLYETHYLENE GLYCOL 3350 (17GM) 1 DOSE PACK PO SCH (16:56)
[2025-03-05 20:00] VITALS: BP 157/82; PULSE 83; RESP 22; TEMP 36.5; O2SAT 96
[2025-03-06] VITALS: BP 145/85; PULSE 78; RESP 22; TEMP 36.6; O2SAT 97
[2025-03-06 04:00] VITALS: BP 150/89; PULSE 81; RESP 22; TEMP 36.6; O2SAT 98
[2025-03-06 08:00] VITALS: BP 154/82; PULSE 76; RESP 19; TEMP 36.7; O2SAT 98
[2025-03-06] MEDS: POLYETHYLENE GLYCOL 3350 (17GM) 1 DOSE PACK PO SCH (08:55)
[2025-03-06 12:00] VITALS: BP 140/75; PULSE 73; RESP 18; TEMP 36.7; O2SAT 98
[2025-03-06] MEDS: DOCUSATE SODIUM 100MG CAPSULE PO SCH (12:15)
[2025-03-06 16:00] VITALS: BP 136/71; PULSE 70; RESP 17; TEMP 36.7; O2SAT 99
[2025-03-06 20:00] VITALS: BP 138/77; PULSE 82; RESP 18; TEMP 36.5; O2SAT 98
[2025-03-06 20:39] LABS: BASOPHILS % 0.8 % (0.0-2.0); EOSINOPHILS % 3.4 % (0.0-5.0); HEMATOCRIT. 34.5 % (36.0-48.0); HEMOGLOBIN. 10.9 g/dL (12.0-16.0); LYMPHOCYTES % 17.2 % (20.0-50.0); MEAN PLATELET VOLUME 9.8 fl (7.4-10.4); MONOCYTES % 8.9 % (2.0-8.0); NEUTROPHILS % 69.7 % (40.0-76.0); PLATELET 240 x1000/uL (130-400); RED BLOOD CELL COUNT 4.42 mill/uL (4.2-5.4); RED CELL DISTRIBUTION WIDTH 14.1 % (11.6-14.6)
[2025-03-06 21:03] LABS: UREA NITROGEN BLOOD 13 mg/dL (9-23)
[2025-03-06 21:04] LABS: CREATININE 1.8 mg/dL (0.6-1.0)
[2025-03-06] MEDS: SENNOSIDES 8.6MG TABLET PO SCH (21:09)
[2025-03-07] VITALS: BP 114/76; PULSE 81; RESP 19; TEMP 36.3; O2SAT 95
[2025-03-07 04:00] VITALS: BP 116/77; PULSE 81; RESP 19; TEMP 36.5; O2SAT 96
[2025-03-07] MEDS: MAGNESIUM 2 G PREMIX 50 ML IV NR ×2 (04:34→13:10)
[2025-03-07] MEDS: MORPHINE SULFATE 4 MG/ML INJ (FOR IV/IM USE) IV PRN (05:03)
[2025-03-07 06:37] LABS: CREATININE 1.9 mg/dL (0.6-1.0)
[2025-03-07 06:38] LABS: UREA NITROGEN BLOOD 14 mg/dL (9-23)
[2025-03-07 06:40] LABS: PHOSPHORUS 4.4 mg/dL (2.5-4.9)
[2025-03-07 08:00] VITALS: BP 136/75; PULSE 70; RESP 17; TEMP 36.4; O2SAT 99
[2025-03-07 12:00] VITALS: BP 141/76; PULSE 87; RESP 18; TEMP 36.5; O2SAT 98
[2025-03-07] MEDS: POTASSIUM CHLORIDE 20MEQ TABLET SR PO NR (13:10)
[2025-03-07 16:00] VITALS: BP 126/71; PULSE 84; RESP 18; TEMP 36.4; O2SAT 99
[2025-03-07 20:00] VITALS: BP 141/66; PULSE 94; RESP 17; TEMP 36.5; O2SAT 100
[2025-03-08] VITALS: BP 131/71; PULSE 84; RESP 18; TEMP 36.7; O2SAT 98
[2025-03-08 04:00] VITALS: BP 138/74; PULSE 78; RESP 16; TEMP 36.8; O2SAT 98
[2025-03-08 07:35] LABS: CREATININE 1.4 mg/dL (0.6-1.0)
[2025-03-08 07:36] LABS: BASOPHILS % 0.9 % (0.0-2.0); EOSINOPHILS % 2.6 % (0.0-5.0); HEMATOCRIT. 37.2 % (36.0-48.0); HEMOGLOBIN. 11.8 g/dL (12.0-16.0); LYMPHOCYTES % 18.6 % (20.0-50.0); MEAN PLATELET VOLUME 9.6 fl (7.4-10.4); MONOCYTES % 9.2 % (2.0-8.0); NEUTROPHILS % 68.7 % (40.0-76.0); PLATELET 279 x1000/uL (130-400); RED BLOOD CELL COUNT 4.80 mill/uL (4.2-5.4); RED CELL DISTRIBUTION WIDTH 14.1 % (11.6-14.6)
[2025-03-08 07:37] LABS: UREA NITROGEN BLOOD 13.0 mg/dL (9-23)
[2025-03-08 08:00] VITALS: BP 155/86; PULSE 79; RESP 16; TEMP 36.6; O2SAT 95
[2025-03-08 12:00] VITALS: BP 128/66; PULSE 78; RESP 18; TEMP 36.6
[2025-03-08 16:00] VITALS: BP 135/67; PULSE 79; RESP 18; TEMP 36.3; O2SAT 97
[2025-03-08 20:00] VITALS: BP 134/74; PULSE 95; RESP 18; TEMP 36.6; O2SAT 98
[2025-03-09] VITALS (7 sets, daily range): BP systolic 116–150; BP diastolic 57–80; PULSE 72–88; RESP 17–20; TEMP 36.2–36.7; O2SAT 96–100
[2025-03-09] MEDS: HYDROCODONE/ACETAMINOPHEN 10/325MG TABLET PO NR (02:39)
[2025-03-09] MEDS: MORPHINE SULFATE 10 MG/ML INJ (NOT FOR IM USE) IV PRN (10:23)
[2025-03-09] MEDS ORDERED: HYDROCODONE/ACETAMINOPHEN 5/325MG TABLET PO SCH (11:00)
[2025-03-09] MEDS ORDERED: HYDROCODONE/ACETAMINOPHEN 5/325MG TABLET PO PRN (20:45)
[2025-03-09] MEDS ORDERED: HYDROCODONE/ACETAMINOPHEN 10/325MG TABLET PO PRN (20:45)
[2025-03-09] MEDS ORDERED: MORPHINE SULFATE 10 MG/ML INJ (NOT FOR IM USE) IV PRN (20:49)
== END 2025-03-09 21:45 | disposition home health service (06) | DRG 393 ==
LOC: 7WST 23:11 → 8EST 03-05 15:01
PROVIDERS: ADMIT Internal Medicine; ATTEND Internal Medicine
PROC: 0DJD8ZZ Inspection of Lower Intestinal Tract, Via Natural or Artificial Opening Endoscopic (ICD-10-PCS; principal; 2025-03-03)
DX: K60.2 Anal fissure, unspecified (principal); A41.9 Sepsis, unspecified organism; G82.50 Quadriplegia, unspecified; G93.41 Metabolic encephalopathy; K56.49 Other impaction of intestine; N39.0 Urinary tract infection, site not specified; I69.351 Hemiplegia and hemiparesis following cerebral infarction affecting right dominant side; S36.63XA Laceration of rectum, initial encounter; D50.9 Iron deficiency anemia, unspecified; K56.41 Fecal impaction; M48.02 Spinal stenosis, cervical region; M48.061 Spinal stenosis, lumbar region without neurogenic claudication; M75.01 Adhesive capsulitis of right shoulder; I10 Essential (primary) hypertension; E78.00 Pure hypercholesterolemia, unspecified; R53.81 Other malaise; D25.9 Leiomyoma of uterus, unspecified; S31.831A Laceration without foreign body of anus, initial encounter; E83.42 Hypomagnesemia; M50.10 Cervical disc disorder with radiculopathy, unspecified cervical region; E87.6 Hypokalemia; F03.90 Unspecified dementia, unspecified severity, without behavioral disturbance, psychotic disturbance, mood disturbance, and anxiety; X58.XXXA Exposure to other specified factors, initial encounter; M47.892 Other spondylosis, cervical region; Z79.01 Long term (current) use of anticoagulants; Z79.899 Other long term (current) drug therapy; Z82.49 Family history of ischemic heart disease and other diseases of the circulatory system; Y93.89 Activity, other specified; Y92.89 Other specified places as the place of occurrence of the external cause; Y99.8 Other external cause status
CPT/HCPCS: 36415; 74018; 76856; 80048; 80053; 83735; 84100; 84145; 85025; 85027; 93005; 97110; 97162; 97166; 97168; 97530; 97535; A4606; J1885; J2270; J2405; J2765; J3010; J3475